=== PATIENT | female | born 1940 | race Caucasian/White ===

== ENCOUNTER 2017-11-24 13:14 | Emergency (ER) | payer MEDICARE, OTHER ==
[2017-11-24] MEDS ORDERED: Silver Sulfadiazine 1% Cream 50 GM JAR ONE (13:54)
--- NOTE | 2017-11-24 14:06 | RAD ---
TWO VIEWS CHEST: Comparison: None. History: Cough. Patient has blisters on her back from sleeping on a heating pad last night. FINDINGS: Two views of the chest shows normal sized cardiomediastinal silhouette. There is a Mediport with its tip in the superior vena cava. There is no evidence of consolidation, mass, or pleural effusion. Dege nerative changes and sclerotic curvature of the spine are seen. IMPRESSION: No evidence of acute cardiopulmonary disease. POS: [facility]
== END 2017-11-24 14:33 | disposition home or self-care (01) ==
LOC: SCSER 13:14
DX: T21.23XA Burn of second degree of upper back, initial encounter (principal); R05 Cough; E03.9 Hypothyroidism, unspecified; X19.XXXA Contact with other heat and hot substances, initial encounter
CPT/HCPCS: 71046

== ENCOUNTER 2018-04-28 12:06 | Emergency (ER) | payer MEDICARE, OTHER ==
--- NOTE | 2018-04-28 12:58 | RAD ---
PORTABLE CHEST 1 VIEW: DATE: 04/28/18. TIME: 12:49 p.m. HISTORY: Chest pain, dizziness. FINDINGS: Comparison is made with the exam of 11/24/17. FINDINGS: A right-sided Port-A-Cath remains in place. The heart is enlarged. The aorta is tortuous. No focal areas of consolidation, pneumothorax, fam pulmonary edema, or pleural effusions are seen. IMPRESSION: No radiographic evidence of acute cardiopulmonary process. POS: [facility]
[2018-04-28 13:11] LABS: ALT (SGPT) 21 U/L (8-55); AST (SGOT) 49 U/L (5-34); Albumin 4.1 g/dL (3.4-4.8); Alkaline Phosphatase 122 U/L (40-150); Anion Gap 17 mmol/L (10-20); BUN (Urea Nitrogen) 15 mg/dL (9.8-20.1); Bilirubin, Total 0.5 mg/dL (0.2-1.2); Calc. Creatinine Clearance 0 mL/min (70-130); Calcium 9.4 mg/dL (7.8-10.44); Carbon Dioxide 22 mmol/L (23-31); Chloride 104 mmol/L (98-107); Estimated GFR-MDRD 33; Globulin 2.5 g/dL (2.4-3.5); Glucose 100 mg/dL (83-110); Potassium 3.4 mmol/L (3.5-5.1); Protein, Total 6.6 g/dL (6.0-8.3); Sodium 140 mmol/L (136-145)
[2018-04-28 13:13] LABS: CKMB 2.1 ng/mL (0-6.6); Troponin I 0.017 ng/mL (< 0.028)
[2018-04-28 13:14] LABS: Hemoglobin 9.2 g/dL (12.0-16.0); Mean Corpuscular HGB CONC 35.9 g/dL (32.0-36.0); Mean Corpuscular Volume 94.7 fL (78.0-98.0); Mean Platelet Volume 10.1 fL (7.4-10.4); Platelet Count 76 thou/uL (130-400); RBC Distribution Width 13.8 % (11.5-14.5); White Blood Cell (WBC) Count 14.3 thou/uL (4.8-10.8)
[2018-04-28 13:18] LABS: Band 16 % (5-11); Lymphocytes 10 % (21-51); MDiff Complete? YES; Monocytes 5 % (0-10); Neutrophil 69 % (42-75); PLT Morphology Comment Appears Decreased
[2018-04-28 13:39] LABS: Bilirubin Negative (Negative); Blood, Urine Trace (Negative); Glucose, Urine (Dipstick) Negative (Negative); Leukocyte Negative (Negative); Nitrite Negative (Negative); Protein, Urine (Dipstick) > or equal to 300 mg/dL (Neg-Trace); Specific Gravity, Urine 1.015 (1.005-1.030); Urobilinogen 0.2 mg/dL (0.2-1.0)
[2018-04-28 13:41] LABS: Clarity Cloudy (Clear)
[2018-04-28 13:43] LABS: Squamous Epithelial 0-3 HPF (0-3); WBC/HPF 0-3 HPF (0-3)
== END 2018-04-28 14:35 | disposition home or self-care (01) ==
LOC: SCSER 12:06
DX: E86.0 Dehydration (principal); D72.829 Elevated white blood cell count, unspecified; D69.6 Thrombocytopenia, unspecified; E03.9 Hypothyroidism, unspecified
CPT/HCPCS: 71045; 80053; 81003; 81015; 82553; 84484; 85025; 93005; 96360; 96361

== ENCOUNTER 2018-07-24 09:11 | Emergency (ER) | payer MEDICARE, OTHER ==
[2018-07-24 09:34] LABS: Bilirubin Negative (Negative); Blood, Urine Small (Negative); Clarity Cloudy (Clear); Glucose, Urine (Dipstick) Negative (Negative); Leukocyte Large (Negative); Nitrite Negative (Negative); Protein, Urine (Dipstick) > or equal to 300 mg/dL (Neg-Trace); Urobilinogen 0.2 mg/dL (0.2-1.0)
[2018-07-24 09:39] LABS: Bacteria/HPF 3+ HPF (None Seen); Squamous Epithelial 0-3 HPF (0-3)
[2018-07-24] MEDS ORDERED: Lidocaine 1% PF 5 ML VIAL ONE (09:54)
[2018-07-24] MEDS ORDERED: cefTRIAXone\\ROCEPHIN 1 GM VIAL ONE (09:54)
== END 2018-07-24 09:59 | disposition home or self-care (01) ==
LOC: SCSER 09:11
DX: N39.0 Urinary tract infection, site not specified (principal); E03.9 Hypothyroidism, unspecified
CPT/HCPCS: 81003; 81015; 87077; 87086; 87186; 96372; J0696; J2001

== ENCOUNTER 2018-09-12 12:08 | Observation (INO) | payer MEDICARE, OTHER ==
[2018-09-12 13:30] LABS: #Basophils 0.1 thou/uL (0.0-0.2); #Eosinphils 0.1 thou/uL (0.0-0.7); #Lymphocytes 0.6 thou/uL (1.20-3.40); #Monocytes 0.5 thou/uL (0.11-0.59); #Neutrophils 4.8 thou/uL (1.40-6.50); %Basophils 1.3 % (0.0-1.0); %Eosinophils 1.8 % (0.0-10.0); %Lymphocytes 10.3 % (21.0-51.0); %Monocytes 8.6 % (0.0-10.0); %Neutrophils 78.1 % (42.0-75.0); Hemoglobin 8.6 g/dL (12.0-16.0); Mean Corpuscular HGB CONC 34.3 g/dL (32.0-36.0); Mean Corpuscular Hemoglobin 32.2 pg (27.0-31.0); Mean Platelet Volume 8.3 fL (7.4-10.4); PLT Morphology Comment Appears Decreased; Platelet Count 112 thou/uL (130-400); RBC Distribution Width 11.6 % (11.5-14.5); RBC Morphology Normal; Red Blood Cell (RBC) Count 2.66 mill/uL (4.20-5.40); White Blood Cell (WBC) Count 6.1 thou/uL (4.8-10.8)
[2018-09-12 13:33] LABS: ALT (SGPT) 12 U/L (8-55); AST (SGOT) 23 U/L (5-34); Albumin 4.4 g/dL (3.4-4.8); Alkaline Phosphatase 68 U/L (40-150); Anion Gap 14 mmol/L (10-20); BUN (Urea Nitrogen) 28 mg/dL (9.8-20.1); Bilirubin, Total 0.3 mg/dL (0.2-1.2); Calc. Creatinine Clearance 0 mL/min (70-130); Carbon Dioxide 24 mmol/L (23-31); Chloride 108 mmol/L (98-107); Estimated GFR-MDRD 29; Globulin 2.3 g/dL (2.4-3.5); Glucose 108 mg/dL (83-110); Potassium 4.3 mmol/L (3.5-5.1); Protein, Total 6.7 g/dL (6.0-8.3); Sodium 142 mmol/L (136-145)
[2018-09-12 13:34] LABS: CKMB 1.3 ng/mL (0-6.6); Troponin I 0.018 ng/mL (< 0.028)
--- NOTE | 2018-09-12 13:57 | RAD ---
CHEST TWO VIEWS: History: Shortness of breath. Comparison: 04-28-18 FINDINGS: Port catheter is in similar position. Heart size is mildly enlarged. Moderate dextroscoliosis lumbar spine. No focal airspace infiltrate. IMPRESSION: No acute intrathoracic abnormality. POS: [facility]
[2018-09-12 16:46] VITALS: BMI 24.5
[2018-09-12] MEDS ORDERED: Ondansetron ODT 4 MG TAB PO PRN (20:59)
[2018-09-12] MEDS ORDERED: Ondansetron PF 4 MG/2 ML Vial IVP PRN (20:59)
[2018-09-12] MEDS ORDERED: Acetaminophen 325 MG TAB PO PRN ×2 (20:59→21:06)
[2018-09-12] MEDS ORDERED: Sodium Chloride 0.9% 1,000 ML IV SCH (21:00)
[2018-09-12] MEDS ORDERED: Carvedilol 6.25 MG TAB PO SCH ×2 (21:30→22:00)
[2018-09-12] MEDS ORDERED: Hydroxychloroquine Sulfate 200 MG TAB PO SCH (21:30)
[2018-09-12] MEDS ORDERED: Gabapentin 300 MG CAP PO SCH (21:45)
[2018-09-12] MEDS ORDERED: hydrALAZINE 25 MG TAB PO SCH (22:15)
[2018-09-12] MEDS ORDERED: NIFEdipine XL 60 MG TAB PO SCH (22:30)
[2018-09-13 04:35] LABS: #Eosinphils 0.1 thou/uL (0.0-0.7); #Lymphocytes 0.8 thou/uL (1.20-3.40); #Monocytes 0.4 thou/uL (0.11-0.59); #Neutrophils 2.7 thou/uL (1.40-6.50); %Basophils 0.7 % (0.0-1.0); %Eosinophils 3.4 % (0.0-10.0); %Lymphocytes 19.5 % (21.0-51.0); %Monocytes 10.6 % (0.0-10.0); %Neutrophils 65.7 % (42.0-75.0); Hemoglobin 8.9 g/dL (12.0-16.0); Mean Corpuscular HGB CONC 33.5 g/dL (32.0-36.0); Mean Corpuscular Hemoglobin 33.1 pg (27.0-31.0); Mean Corpuscular Volume 98.8 fL (78.0-98.0); Mean Platelet Volume 7.2 fL (7.4-10.4); Platelet Count 144 thou/uL (130-400); RBC Distribution Width 11.6 % (11.5-14.5); White Blood Cell (WBC) Count 4.2 thou/uL (4.8-10.8)
[2018-09-13 04:44] LABS: Albumin 4.1 g/dL (3.4-4.8); Anion Gap 9 mmol/L (10-20); BUN (Urea Nitrogen) 23 mg/dL (9.8-20.1); BUN/Creatinine Ratio 17.29; Calc. Creatinine Clearance 35 mL/min (70-130); Carbon Dioxide 27 mmol/L (23-31); Chloride 108 mmol/L (98-107); Estimated GFR-MDRD 39; Glucose 94 mg/dL (83-110); Phosphorus 3.3 mg/dL (2.3-4.7); Potassium 4.1 mmol/L (3.5-5.1); Sodium 140 mmol/L (136-145)
[2018-09-13] MEDS ORDERED: Levothyroxine Sodium 75 MCG TAB PO SCH (06:00)
[2018-09-13 08:46] VITALS: TEMP 97.9
[2018-09-13] MEDS ORDERED: hydrALAZINE 25 MG TAB PO SCH (09:00)
[2018-09-13] MEDS ORDERED: Gabapentin 300 MG CAP PO SCH ×2 (09:00→21:00)
[2018-09-13] MEDS ORDERED: pyridOXINE 50 MG (B6) TAB PO SCH (09:00)
[2018-09-13] MEDS ORDERED: Hydroxychloroquine Sulfate 200 MG TAB PO SCH (09:00)
[2018-09-13] MEDS ORDERED: NIFEdipine XL 60 MG TAB PO SCH ×2 (09:00)
[2018-09-13] MEDS ORDERED: Carvedilol 6.25 MG TAB PO SCH (09:00)
--- NOTE | 2018-09-13 10:03 | DIS ---
DATE OF ADMISSION: 09/12/2018 DATE OF DISCHARGE: 09/13/2018 DISCHARGE DIAGNOSES: 1. Shortness of breath. 2. Chest pain. 3. Hypertension. 4. Episodic hypotension. 5. Dizziness. 6. Ovarian cancer. HISTORY: This patient is a 77-year-old female with a history of ovarian cancer being followed at [facility]. The patient presented to the [facility] reporting some d izziness that had been present for 2-3 months. She felt like the room was spinning at times and she had to grab something to avoid from falling. She did have some history of neuropathy for the last co uple years as well. The patient apparently had finished chemotherapy at [facility] in June. She reported wide swings in her blood pressure from 202/101 down to 80/35 in a short period of time. Whi le there, she also reported some shortness of breath and some pain in her left shoulder blade area fo r about a week, which radiated down toward the ribs. There, the patient had a workup that included a chest x-ray which was negative and EKG showing a sinus rhythm with unifocal PVCs, some left axis dev iation and some poor R-wave progression. The patient had blood pressure there, ranging from 151/78-1 87/72. She had an exam that was negative. Her lab workup was notable for hemoglobin of 8.6 consiste nt with her chronic anemia. A D-dimer of 0.55, BUN of 28, creatinine of 1.71, which was minimally el evated above her prior baseline which was around 1.5. She also had a BNP that was elevated at 1022. Patient was subsequently transferred to this facility for a possible VQ scan. The patient's creatin ine had precluded her getting a CT angiogram to rule out pulmonary embolus to explain her blood press ure issues, back pain and shortness of breath symptoms. On the morning of discharge, it was notified that the patient was not satisfied with the care that she had received. The patient had not receive d her VQ scan that was ordered the day before. She felt like all that it happened was that she was g etting her blood pressure monitored every 4 hours. She had an interaction the beveling and edging machine operator in the midd le of the night, but indicates it was brief and it woke her up and she was unable to go back to sleep until 5:00 this morning. She states she would simply like to leave and follow up at [facility]. She has placed a call to her physician's office at [facility] and is expecting a call back within the hour. She has her morning medications and would like to get food, take her medicines and call h er daughter to come pick her up and take her home. I did explain the VQ scan, the rationale behind i t and the risk of leaving against medical advice, which could include worsening of condition and even . Certainly understand her desire to follow up with [facility] where the physicians know he r case in more detail. We did review her lab work, including the labs from today which revealed a BU N of 23 and a creatinine down to 1.33. Patient has signed forms to leave against medical advice. We will certainly try to accommodate getting her copies of her workup from here so that information can be transmitted down to her physician at [facility]. I also offered to speak with her [facility] physician if they do in fact call back. The patient should be on a regular diet and activity precious hua. She will resume her usual home medications and she can return to the emergency department at any time should she have problems prior to our follow up.
[2018-09-13 10:15] VITALS: BP 133/61
--- NOTE | 2018-09-13 21:34 | HP ---
CHIEF COMPLAINT: Weakness and dizziness. HISTORY OF PRESENT ILLNESS: This is a 77-year-old female with past medical history of vitamin D deficiency, osteopenia, lupus, chronic sinusitis, hyperlipidemia, ovarian cancer treated with chemotherapy, presenting with lightheadedness and dizziness. Per electronic medical records and patient's daughter, the patient has been having dizziness and spinning sensation. Patient stated that her spinning sensation and dizziness has been going on for 2 -3 months prior to the day of admission. Patient states that she normally has to hold on to something to prevent her from falling. Normally what alleviates patient's symptoms is patient is lying down and taking a nap. Per patient, she had been having chemo treatment at [facility] and her last chemo treatment was in June for ovarian cancer at [facility] and the patient stated since she started the chemo regimen, her blood pressure has been uncontrolled. Over the weekend, patient stated that her blood pressure systolic was 202 specifically on Wednesday and then became low at 80 systolic 5 hours later. Patient states that on the day of admission when she checked her blood pressure, it was 112/ 92. Patient states that she was having associated symptoms of shortness of breath and the shortness of breath was accompanied with some dizziness. At this point, the patient denies any cough, loss of consciousness, weakness or numbness sensation. However, patient admits to having left shoulder pain and this has been going on for 1 week and radiates to the left lateral rib. REVIEW OF SYSTEMS: Positive for shortness of breath, left shoulder blade pain that radiates to the left lateral rib, dizziness and some weakness. Otherwise, as documented in the HPI, all other systems were reviewed and are negative. PAST MEDICAL HISTORY: Patient has osteopenia, vitamin D deficiency, lupus, chronic sinusitis, hyperlipidemia, hypertension, ovarian cancer status post chemo, osteoarthritis and hypothyroidism. FAMILY HISTORY: Reviewed and noncontributory to this visit. PAST SURGICAL HISTORY: Right knee scope, appendectomy, colectomy in 2013 secondary to mets, hysterectomy, bilateral oophorectomy and a cervical herniated disk repair. PSYCHIATRIC HISTORY: No psych history. SOCIAL HISTORY: The patient denies illicit drug use. The patient denies alcohol use and patient denies smoking history. ALLERGIES: Patient is allergic to ANTI-CAVITY FLUORIDE RINSE, CODEINE, DECADRON and MORPHINE. CURRENT MEDICATIONS: The patient is on amlodipine 5 mg daily, gabapentin 300 mg t.i.d., hydralazine 25 mg t.i.d., hydrochloroquine 200 mg t.i.d., ipratropium intranasal spray, Nifedical 60 mg b.i.d., Synthroid 75 mcg daily, vitamin D6 100 mg daily, vitamin D3 5000 units daily. PHYSICAL EXAMINATION: VITAL SIGNS: Blood pressure 151/78, pulse 68, respiratory rate is 16, temperature is 97.9, O2 sat is 97% on room air. GENERAL: Patient is alert, oriented x3, not in acute distress. Patient is lying comfortably in bed, able to speak in full sentences. The patient states that she is very sleepy. HEENT: Normocephalic, atraumatic. Pupils are equal, round, and react to light. Extraocular movements are intact. No scleral icterus. Mucous membranes are moist. NECK: No JVD. Trachea is midline. No meningeal signs. Full range of motion, supple. LUNGS: Clear to auscultation bilaterally. No wheezing, no rales, no rhonchi is appreciated. CARDIAC: Positive S1, S2, regular rate and rhythm, no murmurs, no gallops or rubs appreciated. ABDOMEN: Soft, nontender, nondistended, positive bowel sounds in all quadrants , no peritoneal signs. EXTREMITIES: The patient had 5/5 upper extremity strength with good pulses. No edema. Lower extremity 5/5, good pulses, no edema. NEUROLOGIC: Cranial nerves II-XII grossly intact. No neurologic deficits noted. Alvaro-Hallpike negative. Patient has no signs of vertigo. SKIN: Warm, dry, and intact. PSYCHIATRIC: Normal affect, normal mood. Alert and oriented x3. IMAGING DATA: EKG: Normal sinus rhythm with a rate of 66. Chest x-rays are negative. LABORATORY DATA: WBC 6.1, hemoglobin is 8.6, hematocrit 25.0, RDW is 11.6, MCV is 94 and platelet count is 112. D-dimer is 0.55, sodium 142, potassium is 4.3 , chloride 108, carbon dioxide of 24, anion gap of 14, BUN is 28, creatinine is 1.71, GFR of 29. Lactic acid of 0.7, AST 23, ALT is 12. Troponin x1 is 0.018, BNP is 1022. ASSESSMENT AND PLAN: This is a 77-year-old female being admitted for: 1. Dizziness, generalized weakness most likely due to polypharmacy. At this point, patient's blood pressure has been hovering around 200 systolics over the weekend and 80s systolic at certain times during the weekend. Per the patient, she gets dizziness every time when her blood pressure drops and she feels very fatigued. At this point, patient's blood pressure medications have to be adjusted and patient has been started on gentle hydration. We will continue to monitor the patient closely. 2. Dizziness, likely to orthostatic hypotension. At this point, we are giving the patient gentle hydration. We will also rule out any neurocardiogenic causes of dizziness. EKG so far shows normal sinus rhythm. We will continue to monitor the patient at this time and we will adjust patient's medications as the patient medication of nifedipine and hydralazine combination can cause drastic decrease in blood pressure and the side effects of hydralazine can cause rebound hypertension. So at this point, we will reconcile patient's medications and monitor the patient closely. 3. History of lupus. We will continue patient on her current medications. 4. Hypertension. We will monitor patient's blood pressure closely. We have ordered for orthostatic vital signs. We will follow up with these vital signs and we will continue to manage the patient accordingly. 5. Hyperlipidemia. We will continue patient on current management. 6. Ovarian cancer status post chemo, currently stable. We will monitor the patient. 7. Osteoarthritis. We will continue patient on current regimen of her home medications. 8. Hypothyroidism. Continue patient on levothyroxine. 9. Deep venous thrombosis and gastrointestinal prophylaxis. MTDD
== END 2018-09-13 10:08 | disposition left against medical advice (07) ==
LOC: SCSER 12:08 → ONC 14:51
PROVIDERS: ADMIT Internal Medicine; ATTEND Internal Medicine
DX: R42 Dizziness and giddiness (principal); R06.02 Shortness of breath; R07.9 Chest pain, unspecified; I95.9 Hypotension, unspecified; Z85.43 Personal history of malignant neoplasm of ovary; I10 Essential (primary) hypertension; E78.5 Hyperlipidemia, unspecified; Z79.899 Other long term (current) drug therapy; Z88.5 Allergy status to narcotic agent; Z88.8 Allergy status to other drugs, medicaments and biological substances
CPT/HCPCS: 71046; 80053; 80069; 82553; 83605; 83880; 84484; 85025 ×2; 85379; 93005; 96360; 96361 ×3; 99285; G0378; 36415

== ENCOUNTER 2018-09-20 09:53 | Outpatient (CLI) | payer MEDICARE, OTHER ==
--- NOTE | 2018-09-20 11:31 | MMO ---
BILATERAL SCREENING MAMMOGRAM: HISTORY: A 77-year-old female for screening mammography. COMPARISON: 09/17/2017, 09/16/2016, 09/11/2015 FINDINGS: Bilateral MLO and CC views of the breasts show heterogeneously dense breast parenchyma, which may low er the sensitivity of mammography. Bilateral vascular calcifications are seen. Other benign appeari ng calcifications are also seen in both breasts. There is no evidence of suspicious mass, suspicious cluster of microcalcifications, or area of architectural distortion. Interpretation of this mammogram was performed with the assistance of computer aided detection. IMPRESSION: BI-RADS Category 2-Benign findings. Annual screening mammography is recommended. POS: [facility]
== END 2018-09-20 09:54 | disposition home or self-care (01) ==
LOC: SCSMAMMO 09:53
PROVIDERS: ATTEND Family Medicine
DX: Z12.31 Encounter for screening mammogram for malignant neoplasm of breast (principal)
CPT/HCPCS: 77067